=== PATIENT | female | born 1945 | race Caucasian/White ===

== ENCOUNTER → 2017-02-08 | Outpatient (CLI) | payer MEDICARE ==
[~2017-02-08] MED LIST: ALDACTONE25 MG PO; CELEBREX200 MG PO; COLACE100 MG PO; CORGARD20 MG PO; CYMBALTA60 MG PO; EXCEDRIN EXTRA1 TAB PO; GLUCOPHAGE500 MG PO; LIPITOR10 MG PO; LOSARTAN-HCTZ1 EAC2 PO; MAPAP500 M1 PO; PRILOSEC20 MG PO
[2017-02-08 14:11] LABS: BASOPHIL % 0.6 %; EOSINOPHIL # 0.1 K/uL (0.0-0.5); EOSINOPHIL % 1.6 %; HEMATOCRIT 41.9 % (33.0-46.0); HEMOGLOBIN 13.4 g/dL (10.0-15.0); IMMATURE GRANULOCYTE % 0.3 %; LYMPHOCYTE % 32.3 %; MCH 26.2 pg (27.0-34.0); MCV 81.8 fl (83.0-98.0); MONOCYTE # 0.4 K/uL (0.0-1.0); MONOCYTE % 5.8 %; MPV 9.2 fl (9.4-12.4); NEUTROPHIL # (ANC) 3.7 K/uL (1.8-7.8); NEUTROPHIL % 59.4 %; NRBC % 0 /100WBC (0-0.00); PLATELET COUNT 248 K/uL (150-450); RBC 5.12 M/uL (3.50-5.50); RDW-CV 14.3 % (11.9-14.6); WBC 6.2 K/uL (4.0-11.0)
[2017-02-08 14:18] LABS: INR - (THERAPEUTIC) 1.06 (0.92-1.07); PROTIME 11.1 SECONDS (9.8-11.4)
== END | disposition disaster alternative care site (69) ==
LOC: GPOC 02-06 11:00 → GRAD 13:42 → GPOC 14:00
PROVIDERS: Internal Medicine
PROC: 0G9G3ZX Drainage of Left Thyroid Gland Lobe, Percutaneous Approach, Diagnostic (ICD-10-PCS; principal; 2017-02-08)
PROC: 0G9H3ZX Drainage of Right Thyroid Gland Lobe, Percutaneous Approach, Diagnostic (ICD-10-PCS; 2017-02-08)
DX: E07.89 Other specified disorders of thyroid (principal); E05.20 Thyrotoxicosis with toxic multinodular goiter without thyrotoxic crisis or storm